=== PATIENT | male | born 1960 | race Caucasian/White ===

== ENCOUNTER → 2023-09-04 | Outpatient (CLI) | payer MEDICARE ==
[2023-09-04 15:16] VITALS: BP 123/81; PULSE 105; RESP 16; TEMP 98.4
--- NOTE | 2023-09-04 16:44 | P.SLEEP ---
History of Present Illness DATE: 09/04/2023 CONSULTATION/NEW PATIENT EVALUATION HISTORY OF PRESENT ILLNESS/SLEEP-WAKE EVALUATION: 62-year-old gentleman had b een evaluated in the sleep center for possible obstructive sleep apnea hypopnea syndrome. SLEEP SCHEDULE: Patient usually sleeps only about 4 hours per night, does not have regular sleep schedule. FALLING ASLEEP: Patient does have difficulties with falling asleep, has TV set in bedroom. DURING SLEEP: Patient has very loud snoring and witnessed episodes of stop breathing during the sleep. Patient wakes up from sleep several times with episodes of nocturia. Positive history of heartburn, episodes of gasping for air, sweating and sleep talking. No history of hypnogogical hallucinations, sle ep paralysis, or cataplexy. DURING THE DAY/WAKE STATE: In the morning patient wake up tired, falling asleep during the day, has problems with memory, concentration, depression and anxiety. Gird[place]ree sleepiness scale is extremely high 20. PAST MEDICAL HISTORY: Episode of atrial flutter, COPD, hypertension, hyperlipidemia. PAST SURGICAL HISTORY: Surgical treatment for diverticulitis, cardiac ablation recently for atrial flutter. MEDICATIONS: Losartan 50 mg twice a day, Eliquis 5 mg once a day, fenofibrate 160 mg once a day, metoprolol 25 mg once a day, oxycodone up to 3 times a day, gabapentin twice a day, methocarbamol 750 mg every 8 hours, Spiriva 2.5 mg 2 inhalation during the day, atorvastatin 40 mg once a day. SOCIAL HISTORY: Positive history of smoking for 35 pack years, quit several days ago, alcohol consumption occasional. FAMILY HISTORY: Hypertension, heart problems, sleep apnea, asthma, stroke. REVIEW OF SYSTEMS: Loud snoring, witnessed episodes of stop breathing during sleep, sleepiness during the day. No fevers. No double vision. No recent chest pain. No shortness of breath. No abdominal pain. No bleeding episodes. No blood in urine. No seizure episodes. PHYSICAL EXAMINATION: GENERAL: A pleasant patient without any distress. VITAL SIGNS: 123/81, HR 105, RR 16, weight 213 pounds, height 5 feet and 7-1/2 inches, temperature 98.4, oxygen saturation room air 92%, body mass index 32.8. HEENT: PERRLA, EOMI. Evaluation of oropharynx showed tongue protrudes midline, low position of soft palate Mallampati 4. NECK: Supple. No JVD. Thyroid is not palpable. 19 inches in circumference. LUNGS: Clear to percussion and to auscultation. Good air exchange. No wheezing or rhonchi. HEART: S1, S2 regular. No murmurs, gallops or rubs. ABDOMEN: Soft and nontender. Bowel sounds are present. No organomegaly appreciated. EXTREMITIES: No clubbing or cyanosis. EAP SPECIALIST: Awake, alert, and oriented x3. Cranial nerves 2 to 7 intact. There is no fasciculation or atrophy noted. No focal deficits observed. ASSESSMENT: 1. Loud snoring, witnessed episodes of stop breathing during sleep, awakenings from sleep with gasping for air, extremely low position of soft palate Mallampati 4, wide neck 19 inches in circumference, sleepiness with Gird[place]ree Sleepiness Scale is 20. Obstructive sleep apnea hypopnea syndrome. 2. Recent episode of atrial flutter, status post cardiac ablation. 3. COPD. History of smoking for 35 pack years, quit several days ago. 4. Hypertension. 5 hyperlipidemia. 6 . Obesity, BMI 32.8. 7. Status post surgical treatment for diverticulitis. PLAN: 1. Polysomnography for evaluation of patient's breathing during sleep. 2. CPAP/BiPAP titration if sleep study confirms obstructive sleep apnea- hypopnea syndrome. 3. Preferable position during sleep on the side. 4. No driving if patient feels any sleepiness. Patient is aware of civil and criminal liability for unsafe driving. 5. Sleep hygiene with regular sleep time for at least 7.5-8 hours. 6. Watching and losing weight. Thank you very much for referring this patient for consultation. Sincerely, Erasmo Rosenberg MD, PhD, FAASM. Diplomat of [place] [employer], Sleep Medicine Board by [place] [employer] [employer] Mule Operator of [facility] Medications and Allergies Home Medications Medication Instructions Recorded Confirmed Type Albuterol Nebulized [Ventolin 2.5 mg INHALATION Q4H 09/04/23 09/04/23 History Nebulized] Apixaban [Eliquis] 5 mg PO BID 09/04/23 09/04/23 History Ascorbic Acid [Vitamin C] 2 09/04/23 History Atorvastatin [Lipitor] 1 tab-cap PO ONCE 09/04/23 09/04/23 History Cyanocobalamin [Vitamin B-12] PO 09/04/23 History Fenofibrate [Lofibra] 160 mg PO ONCE 09/04/23 09/04/23 History Fluticasone/Vilanterol [Breo 1 each IH DAILY 09/04/23 09/04/23 History Ellipta 100-25 Mcg Inhalr] Gabapentin [Neurontin] 300 mg PO QID MDD dose not given 09/04/23 09/04/23 History L.acidoph,Paracasei, B.lactis 1 each PO 09/04/23 History [Probiotic] Losartan Potassium 50 mg PO BID 09/04/23 09/04/23 History Metoprolol Tartrate 25 mg PO BID 09/04/23 09/04/23 History Milk Thistle mg PO 09/04/23 History Tiotropium 18 Mcg/Puff [Spiriva] 2 puff INHALATION 09/04/23 History Ubidecarenone [Co Q-10] mg PO 09/04/23 History Vitamin B Complex 1 each PO 09/04/23 History Vitamin D3/Vitamin K2 (Mk4) 1 each PO 09/04/23 History [Vitamin K2 Plus D3 Tablet] Zinc Gluconate [Zinc] mg PO DAILY 09/04/23 History methocarbamoL 750 mg PO Q8HR 09/04/23 09/04/23 History oxyCODONE-APAP 10-325MG [Percocet 2 tab PO Q8HR PRN 09/04/23 09/04/23 History 10-325 mg] predniSONE [Deltasone] 2 PO 09/04/23 History Sleep Note - Sleep Note Sleep Note: Temperature: Pulse Rate: Respiratory Rate: Blood Pressure: SpO2: Height: Weight: BMI: Neck Circumference:
== END ==
LOC: 3 N SLEEP 13:57
PROVIDERS: ATTEND Internal Medicine
DX: G47.33 Obstructive sleep apnea (adult) (pediatric) (principal); I48.92 Unspecified atrial flutter; J44.9 Chronic obstructive pulmonary disease, unspecified; I10 Essential (primary) hypertension; E78.5 Hyperlipidemia, unspecified; E66.9 Obesity, unspecified; Z68.32 Body mass index [BMI] 32.0-32.9, adult; Z98.890 Other specified postprocedural states; Z87.891 Personal history of nicotine dependence; Z79.899 Other long term (current) drug therapy; Z79.01 Long term (current) use of anticoagulants
CPT/HCPCS: 99211

== ENCOUNTER 2023-09-08 19:30 | Outpatient (CLI) | payer MEDICARE ==
--- NOTE | 2023-09-11 11:08 | P.PCN ---
Description of Procedure: POLYSOMNOGRAPHY REPORT PROCEDURE(S)/DATE(S): Polysomnography 09/08/2023 CLINICAL: Patient has been seen in the sleep center for evaluation of obstructive sleep apnea-hypopnea syndrome. Please see my consultation. Sleep study has been done for evaluation of patient breathing during the sleep. PROCEDURE: The standard montage for clinical polysomnography included the electroencephalogram, the electrooculogram, the mentalis surface electromyography and Lead II cardiography. The respiratory battery consisted of measurements of nasal/buccal air flow, pressure transducer measurements from nose, thoracic and/or abdominal effort and intercostal surface electromyography. Video monitoring has been done to check for any parasomnia events. Nocturnal oxyhemoglobin saturations were obtained by finger oximetry. Step-aguilar titration with positive airway pressure was utilized to control the respiratory events, if necessary. RESULTS: During the diagnostic sleep study sleep efficiency was close to normal age of 6.3%. Latency to sleep onset was normal 11.5 min. Sleep architecture s howed stage NI was normal 6.0%, Delta sleep was normal at 13.8%, REM sleep was high 32.9%. Respiratory channel showed 8 obstructive apneas, 0 mixed apneas, 5 central apneas, 54 hypopneas with lowest oxygen level 67%. Total oxygen level was below normal for 3 hours 52 minutes and 16 seconds. Total apnea hypopnea index was 10.3. Heart rate was in the range between 79 and 88, average 83. EMG showed 0 periodic limb movements per hour. IMPRESSIONS: 1. Obstructive sleep apnea hypopnea syndrome with long and severe oxygen desaturation. 2. No significant periodic limb movements have been documented. Please see other impressions from consultation PLAN: 1. The patient will have PAP titration for correction of respiratory abnormalities during the sleep. 2. Losing weight program. 3. Sleep hygiene with regular time in bed for at least 7-1/2 hours. 4. No driving if feeling sleepiness. Thank you very much for allowing me to participate in the management of your patient. Sincerely, Erasmo Rosenberg MD, PhD, FAASM. Diplomat of [employer], Sleep Medicine Board by [employer] Inspector And Clerk of [facility] [place]
== END 2023-09-09 06:00 | disposition home or self-care (01) ==
LOC: 3 N SLEEP 19:30
PROVIDERS: ATTEND Internal Medicine
DX: G47.33 Obstructive sleep apnea (adult) (pediatric) (principal); G47.36 Sleep related hypoventilation in conditions classified elsewhere
CPT/HCPCS: 95810

== ENCOUNTER → 2023-09-17 | Outpatient (CLI) | payer MEDICARE ==
[2023-09-17 14:39] VITALS: BP 120/78; PULSE 89; RESP 16; TEMP 98.2
--- NOTE | 2023-09-17 15:28 | P.PN ---
Subjective DATE: 09/17/2023 FOLLOW UP VISIT. Patient returned to sleep center for follow-up visit to discuss results of the sleep study and following plan. Sleep study showed apnea-hypopnea index 10.3, but oxygen level was below normal for 3 hours and 52 minutes with lowest oxygen level 67% patient has CPAP unit which was donated to him, he tried to use it but was not able to use it secondary to not sufficient pressure when he is starting to use it. I checked CPAP unit its AutoPap with a range of the pressure 8-14 with Autoramp starting from 5 cm of water. I adjusted CPAP unit [id number] for patient comfort and with the pressure 10 to 15 cm of water patient feel comfortable. . Blair sleepiness scale is 20 today. MEDICATIONS:1. Losartan 50 mg twice a day 2. Eliquis 5 mg once a day 3. Fenofibrate 160 mg once a day 4. Metoprolol 25 mg once a day 5. Gabapentin twice a day 6. Spiriva 7. Methocarbamol 8. Atorvastatin 40 mg once a day During physical exam: GENERAL: A pleasant patient without any distress. VITAL SIGNS: Please see below. HEENT: PERRLA, EOMI. NECK: Supple. No JVD. LUNGS: Clear to percussion and to auscultation. Good air exchange. No wheezing or rhonchi. HEART: S1, S2 regular. ABDOMEN: Soft and nontender. EXTREMITIES: No clubbing or cyanosis. MARINE FITTER: Awake, alert, and oriented x3. No focal deficit. Impressions: 1. Obstructive sleep apnea hypopnea syndrome with apnea-hypopnea index 10.3. 2. Significant and long oxygen desaturation during sleep secondary to sleep apnea and COPD for 3 hours and 52 minutes with lowest oxygen level 67%. 3. History of smoking for 35 pack years. 4. History of recent episodes of atrial flutter, status post cardiac ablation. 5. Hypertension. 6. Hyperlipidemia. 7. Obesity. 8. Status post surgical treatment for diverticulitis. Plan: 1. Patient will start using AutoPap with a range of the pressure to 10 to 15 cm of water. CPAP unit was donated to the patient by his friend. 2. CPAP, if necessary BiPAP titration, if necessary with added oxygen. 3. Sleep hygiene with regular time in bed for at least 8 hours. 4. Precautions related to driving. No driving if feel any sleepiness. Patient is aware about civil and criminal liability for unsafe driving, promised to follow recommendations. 5. Following plan after reading titration study. Thank you very much for allowing me to participate in the management of your patient. Erasmo Rosenberg MD, PhD, FAASM. Diplomat of [place] [employer], Sleep Medicine Board by [place] [employer] Hospital Receiving Clerk of [facility] [place] Objective - Vital Signs Vital signs: Vital Signs Temp 98.2 F 09/17/23 14:00 Pulse 89 09/17/23 14:00 Resp 16 09/17/23 14:00 BP 120/78 09/17/23 14:00 Pulse Ox 94 L 09/17/23 14:00 FiO2 Intake & Output 09/16/23 09/17/23 09/17/23 18:59 06:59 18:59 Weight 96.615 kg
== END ==
LOC: 3 N SLEEP 13:51
PROVIDERS: ATTEND Internal Medicine
DX: G47.33 Obstructive sleep apnea (adult) (pediatric) (principal); G47.36 Sleep related hypoventilation in conditions classified elsewhere; I10 Essential (primary) hypertension; E78.5 Hyperlipidemia, unspecified; E66.9 Obesity, unspecified; J44.9 Chronic obstructive pulmonary disease, unspecified; Z87.891 Personal history of nicotine dependence; Z86.79 Personal history of other diseases of the circulatory system; Z79.01 Long term (current) use of anticoagulants; Z79.899 Other long term (current) drug therapy; Z87.19 Personal history of other diseases of the digestive system; Z68.32 Body mass index [BMI] 32.0-32.9, adult
CPT/HCPCS: 99212

== ENCOUNTER 2023-09-28 19:36 | Outpatient (CLI) | payer MEDICARE ==
--- NOTE | 2023-10-01 12:04 | P.PCN ---
Description of Procedure: CLINICAL: Titration with positive air pressure has been done for correction of respiratory abnormalities during sleep. DESCRIPTION OF PROCEDURE: The standard montage for clinical polysomnography included the electroencephalogram, the electrocardiogram, the mentalis surface electromyography and Lead II cardiography. The respiratory battery consisted of measurements of nasal /buccal air flow, pressure transducer measurements from the nose, thoracic and /or abdominal effort and intercostal surface electromyography. Video monitoring has been done to check for any parasomnia events. Nocturnal oxyhemoglobin saturations were obtained by finger oximetry. Step-aguilar titration with positive airway pressure was utilized to control respiratory events. Raw data of sleep recording has been reviewed and is adequate. RESULTS: Sleep efficiency was significantly was normal at 90.2%. Latency to sleep onset was normal at 12.5 minutes.]. Sleep architecture showed stage N1 was extremely short 0.9%, Delta sleep was normal 6.3%, REM sleep was normal 21.7%. Heart rate was minimum 73 BPM, maximum 94 BPM, average 84 BPM. EMG showed 6.8 periodic limb movements per hour with 0.5 micriarousals per hour. PAP titration have been done with CPAP up to the pressure 18 cm H2O. oxygen was added and titrated up to the 3 L/min during the test. The best results were at the pressure 18 cm H2O. Apnea hypopnea index reduced to 0, patient was on 3 L/min oxygen supplement at that time and lowest oxygen level was 94%. IMPRESSION: 1. Obstructive sleep apnea hypopnea syndrome on controle with PAP treatment with oxygen supplement 3 L/min. 2. COPD. 3. No significant periodic limb movements have been documented. Please see other impressions from consultation. PLAN: 1. The patient will have treatment with positive air pressure equipment with the level of pressure AutoPap 8-18 cm H2O with oxygen supplement 3 L/min and should use it every night for the whole night. 2. Watching and losing weight. 3. Sleep hygiene with regular time in bed for at least 8 hours. 4. No driving if feeling any sleepiness. 5. I will see the patient for follow up visit to explain the results of the test, recommendations, check compliance with treatment and make any necessary adjustment related to mask fitting, pressure and humidification. Thank you very much for allowing me to participate in the management of your patient. Sincerely, Erasmo Rosenberg MD, PhD, FAASM Diplomat of [employer] [employer] Sleep Medicine Board of [place] [employer] English As A Second Language Instructor of [facility] [place] cc: Leatha Christensen MD
== END 2023-09-29 06:00 | disposition home or self-care (01) ==
LOC: 3 N SLEEP 19:36
PROVIDERS: ATTEND Internal Medicine
DX: G47.33 Obstructive sleep apnea (adult) (pediatric) (principal); G47.36 Sleep related hypoventilation in conditions classified elsewhere; J44.9 Chronic obstructive pulmonary disease, unspecified
CPT/HCPCS: 95811

== ENCOUNTER → 2024-07-27 | Outpatient (CLI) | payer MEDICARE, SELFPAY ==
[2024-07-27 13:25] VITALS: BP 154/83; PULSE 71; RESP 16
--- NOTE | 2024-07-27 15:53 | P.PAINPG ---
Objective - Vital Signs Vital signs: Intake & Output 07/26/24 07/27/24 07/27/24 18:59 06:59 18:59 Weight 101.151 kg PQRS Measure Charge Sheet Comment: HISTORY OF PRESENT ILLNESS: A 63 yr old male w female train inspector at side as a referral from Dr Christensen presents today w severe and chronic groin pain secondary to Iliostomy for evaluation. Pt states pain level is provoked at 10 /10 in intensity, constant, localized in the lower abdomen, sharp in character w occasional shooting pain towards the groin/ testicle. Pain is provoked by standing/ walking/ bending, use of a TENS unit causes skin flare-ups. Pain is alleviated by PT x 6 wks which ended in 2019, physician guided home stretches every other day since 2019, medications, Cannabis, topical, repositioning and rest . PMH: OA, aFlutter, COPD, HTN, Hyperlipidemia, GERD, SHARMAINE PSH: Iliostomy (2018) , Cardiac Ablation , JAMMIE (2022), SH: 35 pack/ yr tobacco use, Occ ETOH use, Cannabis use FH: CAD, SHARMAINE, CVA All: See list Meds: See list icl Oxycodone #90, Neurontin #60, Robaxin 750mg #90, Ibu, Cannabis, CBD Oil, Eliquis REVIEW OF ORGAN SYSTEMS: CONSTITUTIONAL: No fevers or chills. No recent weight loss. NEUROLOGICAL: + numbness and tingling along the distal extremities. No seizure disorders or headaches. MUSCULOSKELETAL: + pain PSYCHIATRIC: Denies current depression or suicidal thoughts. Physical Examinations : Constitutional : Cooperative , not in acute distress . Neurologic : Cranial nerve II to XII intact. No focal neurological deficits. Psychiatric : alert & oriented x 3. Matching mood & appropriate affect. Judgment & insight intact. Musculoskeletal : Cervical Spine Motor strength in the deltoid and bi ceps: Normal right side. Normal Left side Motor strength biceps and the wrist extensors: Normal right side . Normal left side Motor strength in the triceps muscle: Normal right side. Normal left side Deep tendon reflexes: Normal at the biceps. Normal at Brachioradialis. Normal at triceps Vertebral body tenderness to deep palpation over Cervical facet loading test: positive bilaterally Spurling test: positive bilaterally Neck distraction test: positive bilaterally Megan sign: positive bilaterally Thoracic spine Taut bands w twitch response over L C6- T6 Lumbar spine Motor strength lower extremities ,thigh and legs 5/5 Right side , 5/5 Left side Deep tendon reflexes : Normal Knee Jerk. Normal Ankle Jerk Vertebral body tenderness over Bass Test positive Lumbar facet Loading Test: positive Right / positive Left Range of motion of the lumbar spine Flexion 30 degrees, extension 10 degrees Straight Leg Raise test: Left/ Right positive at degrees Charmaine test: positive right / positive left. Severe tenderness over the Sacroiliac joint on the Right / Left sides Gaenslen test: positive bilaterally Seated flexion test: positive bilaterally. 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 ACACIA form sent to [facility] but no records provided. All questions answered. I have spent greater than 30 minutes on patient care today. Dr Juarez was available by phone for the evaluation of this patient. The time was used to review the medical records including relevant urine studies and Prescription history (MAPs), review of the available imaging, evaluation and examination of the patient, coordination of care with the medical staff and if applicable referring physicians, as well as creation of the medical record Home Medications: Ambulatory Orders Albuterol Nebulized [Ventolin Nebulized] 2.5 mg INHALATION Q4H 09/04/23 Apixaban [Eliquis] 5 mg PO BID 09/04/23 Ascorbic Acid [Vitamin C] 2 09/04/23 Atorvastatin [Lipitor] 1 tab-cap PO ONCE 09/04/23 Cyanocobalamin [Vitamin B-12] PO 09/04/23 Fenofibrate [Lofibra] 160 mg PO ONCE 09/04/23 Fluticasone/Vilanterol [Breo Ellipta 100-25 Mcg Inhalr] 1 each IH DAILY 09/04/23 Gabapentin [Neurontin] 300 mg PO QID MDD dose not given 09/04/23 L.acidoph,Paracasei, B.lactis [Probiotic] 1 each PO 09/04/23 Losartan Potassium 50 mg PO BID 09/04/23 Metoprolol Tartrate 25 mg PO BID 09/04/23 Milk Thistle mg PO 09/04/23 Tiotropium 18 Mcg/Puff [Spiriva] 2 puff INHALATION 09/04/23 Ubidecarenone [Co Q-10] mg PO 09/04/23 Vitamin B Complex 1 each PO 09/04/23 Vitamin D3/Vitamin K2 (Mk4) [Vitamin K2 Plus D3 Tablet] 1 each PO 09/04/23 Zinc Gluconate [Zinc] mg PO DAILY 09/04/23 methocarbamoL 750 mg PO Q8HR 09/04/23 oxyCODONE-APAP 10-325MG [Percocet 10-325 mg] 2 tab PO Q8HR PRN 09/04/23 predniSONE [Deltasone] 2 PO 09/04/23 Controlled Substance Measures - Controlled Substance Measures Is patient prescribed a controlled substance at discharge?: No
== END ==
LOC: PNWHC3 12:36
PROVIDERS: ATTEND Specialist
DX: M54.16 Radiculopathy, lumbar region (principal); Z93.2 Ileostomy status; Z91.040 Latex allergy status
CPT/HCPCS: 99211

== ENCOUNTER → 2024-07-27 | Outpatient (CLI) | payer MEDICARE, SELFPAY ==
--- NOTE | 2024-07-27 15:25 | XR ---
EXAMINATION TYPE: XR lumbar spine 2 or 3V DATE OF EXAM: 07/27/2024 3:10 PM COMPARISON: None CLINICAL INDICATION: Male, 63 years old with history of M54.16; PHH, pain TECHNIQUE: XR lumbar spine 2 or 3V - Frontal, lateral and coned in L5-S1 lateral views of the spine. FINDINGS: No evidence of any acute osseous pathology. No evidence of loss of vertebral body height i s seen. There is normal alignment of the lumbar vertebral bodies. Scattered disc space narrowing. Mul tilevel marginal osteophyte formation throughout the visualized spine. There is facet joint arthropat hy throughout the spine. Scattered at least mild neural foraminal stenosis. More severe degeneration at L2-L3 with complete loss of disc height osteophytes present. Atherosclerosis of the arterial vascu lature. IMPRESSION: 1. No acute fracture. 2. Mild moderate to severe L2-L3 disc degeneration with more mild to moderate at the remainder of the spine. [facility], , 07/27/2024 3:22 PM
== END | disposition home or self-care (01) ==
LOC: RADXRMAIN 14:54
PROVIDERS: ATTEND Anesthesiology
DX: M48.061 Spinal stenosis, lumbar region without neurogenic claudication (principal); M47.26 Other spondylosis with radiculopathy, lumbar region; M25.78 Osteophyte, vertebrae
CPT/HCPCS: 72100

== ENCOUNTER → 2024-09-15 | Outpatient (CLI) | payer MEDICARE, SELFPAY ==
[2024-09-15 10:28] VITALS: BP 149/76; PULSE 63; RESP 16; TEMP 97.1
--- NOTE | 2024-09-15 14:58 | P.PAINPG ---
PQRS Measure Charge Sheet Comment: HISTORY OF PRESENT ILLNESS: A 63 yr old male w female staff cytotechnologist at side presents today w severe and chronic groin pain secondary to Iliostomy for evaluation. Pt states pain level is provoked at 10 /10 in intensity, constant, localized in the lower abdomen, sharp in character w occasional shooting pain towards the groin/ testicle. Pain is provoked by standing/ walking/ bending, use of a TENS unit causes skin flare- ups. Pain is alleviated by PT x 6 wks (cerv, lumb, L shoulder) which ended in 2019, chiropractic treatments monthly since 2018 which he is currently in, physician guided home stretches every other day since 2019, medications, Cannabis, topical, repositioning and rest . Interventional procedures include VICKIE C6-C7 x1 (2022), L1-L2 VICKIE x3 (2022) Medications include Oxycodone #90, Neurontin #60, Robaxin 750mg #90, Ibu, Cannabis, CBD Oil, Eliquis REVIEW OF ORGAN SYSTEMS: CONSTITUTIONAL: No fevers or chills. No recent weight loss. NEUROLOGICAL: + numbness and tingling along the distal extremities. No seizure disorders or headaches. MUSCULOSKELETAL: + pain PSYCHIATRIC: Denies current depression or suicidal thoughts. Physical Examinations : Constitutional : Cooperative , not in acute distress . Neurologic : Cranial nerve II to XII intact. No focal neurological deficits. Psychiatric : alert & oriented x 3. Matching mood & appropriate affect. Judgment & insight intact. Musculoskeletal : Cervical Spine Motor strength in the deltoid and biceps: Normal right side. Normal Left side Motor strength biceps and the wrist extensors: Normal right side . Normal left side Motor strength in the triceps muscle: Normal right side. Normal left side Deep tendon reflexes: Normal at the biceps. Normal at Brachioradialis. Normal at triceps Vertebral body tenderness to deep palpation over Cervical facet loading test: positive bilaterally Spurling test: positive bilaterally Neck distraction test: positive bilaterally Megan sign: positive bilaterally Thoracic spine Taut bands w twitch response over L C6- T6 Lumbar spine Motor strength lower extremities ,thigh and legs 5/5 Right side , 5/5 Left side Deep tendon reflexes : Normal Knee Jerk. Normal Ankle Jerk Vertebral body tenderness over L5 Bass Test positive L5-S1 Lumbar facet Loading Test: positive Right / positive Left Range of motion of the lumbar spine Flexion 30 degrees, extension 10 degrees Straight Leg Raise test: Left/ Right positive at degrees Charmaine test: positive right / positive left. Severe tenderness over the Sacroiliac joint on the Right / Left sides Gaenslen test: positive bilaterally Seated flexion test: positive bilaterally. 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 Risks, benefits of procedure discussed and patient verbalized understanding. Protocol for discontinuation/continuation of medication surrounding procedure discussed. All questions answered. I have spent greater than 30 minutes on patient care today. Dr Juarez was available by phone for the evaluation of this patient. The time was used to review the medical records including relevant urine studies and Prescription history (MAPs), review of the available imaging, evaluation and examination of the patient, coordination of care with the medical staff and if applicable referring physicians, as well as creation of the medical record PQRS Narrative: Hx Alcohol Use (MH) Yes Home Medications: Ambulatory Orders Albuterol Nebulized [Ventolin Nebulized] 2.5 mg INHALATION Q4H 09/04/23 Apixaban [Eliquis] 5 mg PO BID 09/04/23 Ascorbic Acid [Vitamin C] 2 09/04/23 Atorvastatin [Lipitor] 1 tab-cap PO ONCE 09/04/23 Cyanocobalamin [Vitamin B-12] PO 09/04/23 Fenofibrate [Lofibra] 160 mg PO ONCE 09/04/23 Fluticasone/Vilanterol [Breo Ellipta 100-25 Mcg Inhalr] 1 each IH DAILY 09/04/23 Gabapentin [Neurontin] 300 mg PO QID MDD dose not given 09/04/23 L.acidoph,Paracasei, B.lactis [Probiotic] 1 each PO 09/04/23 Losartan Potassium 50 mg PO BID 09/04/23 Metoprolol Tartrate 25 mg PO BID 09/04/23 Milk Thistle mg PO 09/04/23 Tiotropium 18 Mcg/Puff [Spiriva] 2 puff INHALATION 09/04/23 Ubidecarenone [Co Q-10] mg PO 09/04/23 Vitamin B Complex 1 each PO 09/04/23 Vitamin D3/Vitamin K2 (Mk4) [Vitamin K2 Plus D3 Tablet] 1 each PO 09/04/23 Zinc Gluconate [Zinc] mg PO DAILY 09/04/23 methocarbamoL 750 mg PO Q8HR 09/04/23 oxyCODONE-APAP 10-325MG [Percocet 10-325 mg] 2 tab PO Q8HR PRN 09/04/23 predniSONE [Deltasone] 2 PO 09/04/23 Controlled Substance Measures - Controlled Substance Measures Is patient prescribed a controlled substance at discharge?: No
== END ==
LOC: PNWHC3 09:52
PROVIDERS: ATTEND Specialist
DX: M54.16 Radiculopathy, lumbar region (principal); Z91.040 Latex allergy status
CPT/HCPCS: 99211

== ENCOUNTER 2024-12-07 07:30 | Day surgery (SDC) | payer MEDICARE, SELFPAY ==
[2024-12-07 07:53] VITALS: RESP 16; TEMP 97.1
[2024-12-07] MEDS: IV FLUID CONTINUATION 1,000 ML IV ONE ×2 (08:27→08:58)
[2024-12-07] MEDS: LACTATED RINGERS 1,000 ML IV SCH (08:31)
[2024-12-07] MEDS ORDERED: methylPREDNISolone ACETATE 80 MG/ML 1 ML VIAL ONE (08:37)
[2024-12-07] MEDS ORDERED: IOPAMIDOL M300 15ML VIAL ONE (08:37)
[2024-12-07] MEDS ORDERED: MIDAZOLAM 2 MG/2 ML VIAL ONE (08:37)
--- NOTE | 2024-12-07 09:05 | P.PCN ---
Description of Procedure: PREOPERATIVE DIAGNOSIS: 1- Lumbar Degenerative Disc Diseases 2-Lumbar spondylosis with Facet arthropathy without myelopathy. 3-lumbar spinal stenosis POSTOPERATIVE DIAGNOSIS: 1-lumbar degenerative disc disease. 2-lumbar spondylosis with facet arthropathy without myelopathy. 3-lumbar spinal stenosis. PROCEDURE Injection of radio contrast material into L5-S1 interspace, interpretation of epidurogram, injection of steroid at L5-S1 epidural space under fluoroscopic guidance. ANESTHESIA: Lidocaine 1% subcutaneously. In OR continuous pulse ox, EKG, blood pressure and verbal communication was maintained with the patient. IV sedation with Versed 3 mg IV. Start time 837. End time 846. Patient is extremely nervous and jittery. Continuously shakes his leg and body. Patient is unable to stay still for the procedures. In the past patient had to have medication to relax him for procedures. That is why decided to start IV and give relaxing medication. EBL: Minimal PROCEDURE INDICATION: Before the procedure were discussed with the patient detailed procedure, alternatives, complications including infection, bleeding, nerve damage, paralysis all of which could be permanent. Patient understands and all questions were answered. Patient has significant pain and tenderness in the scapular area of the shoulder. For that in the past patient had trigger point injection with good results. Will try to arrange for scapular area trigger point injection for shoulder pain before he is next lumbar epidural steroid injection if possible. PROCEDURE DESCRIPTION : After getting consent, patient in OR in prone position. Back was prepped with chlorhexidine and draped in sterile fashion. After injecting 10 mL of 1% li docaine subcutaneously, a 20-gauge Tuohy needle was introduced at L5-S1 interspace with loss of resistance technique using a syringe filled with air. Negative CSF, negative blood, negative paresthesia. Needle position was confirmed with AP and lateral view of the fluoroscope. After repeat negative aspiration 2 mL of Omnipaque 200 water soluble contrast was injected. Contrast was noted in the epidural space. No contrast was noted into intrathecal or intravascular space. After repeat negative aspiration 6 mL solution was injected intermittently which consists of 5 mL of preservative-free normal saline mixed with 1 mL of 80 mg Depo-Medrol. Needle was withdrawn intact. Skin was cleansed and Band-Aids was applied. DISPOSITION / PLANS: The patient tolerated the procedure well. No complication. The patient was placed in a supine position and transferred to the recovery area in a stable condition for observation. There was no evidence of lower extremity motor or sensory deficit after the procedure. Patient was discharged from the recovery room after meeting discharge criteria. Home discharge instructions were given to the patient by the staff. The patient was reexamined prior to discharge. The patient will schedule a follow up in the clinic in 2-4 weeks.
[2024-12-07 09:17] VITALS: BP 121/88; PULSE 88
--- NOTE | 2024-12-07 09:39 | FL ---
EXAMINATION TYPE: FL guided pain mgmt statistic DATE OF EXAM: 12/07/2024 8:51 AM COMPARISON: Pre Operative Images if available both CT/MRI or plain film CLINICAL INDICATION: Male, 63 years old with history of LESI; TECHNIQUE: FL guided pain mgmt statistic, multiple fluoroscopic images provided for procedure. DAP: 0.41134 mGym2 Gycm2 uGym2 cGycm2 or equivalent. FINDINGS: Fluoroscopic images during injection for pain management demonstrate multilevel degeneration changes throughout the spine. No evidence for fracture. No acute process identified. IMPRESSION: 1. No evidence for intraoperative complication. 2. Please see the operative/procedural note for further details. [facility], , 12/07/2024 9:37 AM
== END 2024-12-07 09:26 | disposition home or self-care (01) ==
LOC: ORPAIN 07:30
PROVIDERS: ATTEND Pain Medicine Interventional Pain Medicine
DX: M51.369 Other intervertebral disc degeneration, lumbar region without mention of lumbar back pain or lower extremity pain (principal); M47.816 Spondylosis without myelopathy or radiculopathy, lumbar region; M48.061 Spinal stenosis, lumbar region without neurogenic claudication
CPT/HCPCS: 62323; J2250; Q9967; J1010

== ENCOUNTER → 2024-12-15 | Outpatient (CLI) | payer MEDICARE, SELFPAY ==
[2024-12-15 16:28] VITALS: BP 113/70; PULSE 82; RESP 16; TEMP 97.3
--- NOTE | 2024-12-15 18:34 | P.PROGSL ---
Subjective DATE: 12/15/2024 FOLLOW UP VISIT. Patient with obstructive sleep apnea hypopnea syndrome return to sleep center for follow-up visit. Information from previous visit have been reviewed. Patient is using PAP equipment every night for the whole night with oxygen supplement up to 5 L/min, getting PAP supplies in time. The patient does not have significant problems with the mask, PAP unit and humidification. [place] sleepiness scale is slightly increased to 11. I checked information from PAP unit. PAP unit pressure 8-18, average 9.6 cm H2O. Usage is 100% for more then 4 hours, average 7.6 hours per night. Leak is significantly increased to 74 l/m. Apnea Hypopnea Index is 3.7, which is normal. MEDICATIONS have been reviewed, please see below. During physical exam: GENERAL: A pleasant patient without any distress. VITAL SIGNS: Please see below, weight is 218.4 lbs. HEENT: PERRLA, EOMI.low position of soft palate. NECK: Supple. No JVD. LUNGS: Clear to percussion and to auscultation. Good air exchange. No wheezing or rhonchi. HEART: S1, S2 regular. ABDOMEN: Soft and nontender.[] EXTREMITIES: No clubbing or cyanosis. LINOLEUM INSTALLER: Awake, alert, and oriented x3. No focal deficit. Impressions: 1. Obstructive sleep apnea-hypopnea syndrome. Patient demonstrated great compliance with treatment, benefiting from treatment. 2. COPD. 3. History of atrial flutter, status post cardiac ablation. 4. Hypertension. 5. Hyperlipidemia. 6. Obesity, BMI 34.1. 7. Status post surgical treatment for diverticulitis. Plan: 1. Continue using PAP equipment every night for the whole night. 2. Sleep hygiene with regular time in bed for at least 7.5-8 hours 3. PAP unit should stay lower then position of the head. 4. Advised patient to remove all remaining water from humidifier canister daily and make it dry after each usage. Refill canister with fresh distilled water before each usage. 5. Watching and losing weight. 6. Precautions related to driving. No driving if feel any sleepiness. 7. I will maintain prescription for PAP supplies including mask, tube, filters. 8. Follow up visit in 8 months or earlier if patient has any problems. Thank you very much for allowing me to participate in the management of your patient. Erasmo Rosenberg MD, PhD, FAASM. Diplomat of [place] [employer], Sleep Medicine Board by [employer] [facility] [place] Objective - Vital Signs Vital Signs: Vital Signs Temp 97.3 F L 12/15/24 16:27 Pulse 82 12/15/24 16:27 Resp 16 12/15/24 16:27 BP 113/70 12/15/24 16:27 Pulse Ox 95 12/15/24 16:27 FiO2 Intake & Output 12/14/24 12/15/24 12/15/24 18:59 06:59 18:59 Weight 98.997 kg Home Medications: Home Medications Medication Instructions Recorded Confirmed Type Albuterol Nebulized [Ventolin 2.5 mg INHALATION TID PRN 09/04/23 12/07/24 History Nebulized] Apixaban [Eliquis] 5 mg PO BID 09/04/23 12/07/24 History Fenofibrate [Lofibra] 160 mg PO ONCE 09/04/23 12/07/24 History Fluticasone/Vilanterol [Breo 1 each IH DAILY 09/04/23 12/07/24 History Ellipta 100-25 Mcg Inhalr] Gabapentin [Neurontin] 300 mg PO BID PRN 09/04/23 12/03/24 History Losartan Potassium 50 mg PO QAM 09/04/23 12/03/24 History Metoprolol Tartrate 50 mg PO QAM 09/04/23 12/03/24 History methocarbamoL 750 mg PO Q8HR PRN 09/04/23 12/07/24 History oxyCODONE-APAP 10-325MG [Percocet 2 tab PO Q8HR PRN 09/04/23 12/03/24 History 10-325 mg] Nortriptyline HCl [Pamelor] 25 mg PO HS 12/03/24 12/07/24 History Rosuvastatin Calcium 20 mg PO HS 12/03/24 12/03/24 History icosapent ethyL [Icosapent Ethyl] 1 gm PO BID 12/03/24 12/07/24 History Ibuprofen [Motrin] 600 mg PO Q8HR PRN 12/07/24 12/07/24 History Omeprazole 20 mg PO ONCE 12/07/24 12/07/24 History
== END ==
LOC: 3 N SLEEP 15:48
PROVIDERS: ATTEND Internal Medicine
DX: G47.33 Obstructive sleep apnea (adult) (pediatric) (principal); J44.9 Chronic obstructive pulmonary disease, unspecified; I10 Essential (primary) hypertension; E78.5 Hyperlipidemia, unspecified; E66.9 Obesity, unspecified; Z99.89 Dependence on other enabling machines and devices; Z68.34 Body mass index [BMI] 34.0-34.9, adult; Z86.79 Personal history of other diseases of the circulatory system; Z98.890 Other specified postprocedural states; Z91.040 Latex allergy status
CPT/HCPCS: 99212

== ENCOUNTER → 2024-12-20 | Outpatient (CLI) | payer MEDICARE, SELFPAY ==
[2024-12-20 11:08] VITALS: BP 127/75; PULSE 67; RESP 16; TEMP 97.2
--- NOTE | 2024-12-20 15:50 | P.PAINPG ---
PQRS Measure Charge Sheet Comment: HISTORY OF PRESENT ILLNESS: A 64 yr old male w female bilingual patient support caseworker at side presents today w severe and chronic groin pain secondary to Iliostomy for evaluation s/p VICKIE L5-S1 #1. Pt states he experienced 50 % pain relief x 2 wks s/p procedure. Pt states pain level is provoked at 8 /10 in intensity, constant, localized in the L shoulder, sharp in character without shooting pain. Pain is provoked by lifting, use of a TENS unit causes skin flare-ups. Pain is alleviated by PT x 6 wks (cerv, lumbar, L shoulder) which ended in 2019, chiropractic treatments monthly since 2018 which he is currently in, physician guided home stretches every other day since 2019, medications, Cannabis, topical, repositioning and rest . Interventional procedures include VICKIE C6-C7 x1 (2022), L1-L2 VICKIE x3 (2022), VICKIE L5-S1 x1 (12/15) Medications include Oxycodone #90, Neurontin #60, Robaxin 750mg #90, Ibu, Cannabis, CBD Oil, Eliquis REVIEW OF ORGAN SYSTEMS: CONSTITUTIONAL: No fevers or chills. No recent weight loss. NEUROLOGICAL: + numbness and tingling along the distal extremities. No seizure disorders or headaches. MUSCULOSKELETAL: + pain PSYCHIATRIC: Denies current depression or suicidal thoughts. Physical Examinations : Constitutional : Cooperative , not in acute distress . Neurologic : Cranial nerve II to XII intact. No focal neurological deficits. Psychiatric : alert & oriented x 3. Matching mood & appropriate affect. Judgment & insight intact. Musculoskeletal : Cervical Spine +Taut bands w twitch response over L C3-T2 Motor strength in the deltoid and biceps: Normal right side. Normal Left side Motor strength biceps and the wrist extensors: Normal right side . Normal left side Motor strength in the triceps muscle: Normal right side. Normal left side Deep tendon reflexes: Normal at the biceps. Normal at Brachioradialis. Normal at triceps Vertebral body tenderness to deep palpation over Cervical facet loading test: positive bilaterally Spurling test: positive bilaterally Neck distraction test: positive bilaterally Megan sign: positive bilaterally Thoracic spine Taut bands w twitch response over L C6- T6 Lumbar spine Motor strength lower extremities ,thigh and legs 5/5 Right side , 5/5 Left side Deep tendon reflexes : Normal Knee Jerk. Normal Ankle Jerk Vertebral body tenderness over L5 Bass Test positive L5-S1 Lumbar facet Loading Test: positive Right / positive Left Range of motion of the lumbar spine Flexion 30 degrees, extension 10 degrees Straight Leg Raise test: Left/ Right positive at degrees Charmaine test: positive right / positive left. Severe tenderness over the Sacroiliac joint on the Right / Left sides Gaenslen test: positive bilaterally Seated flexion test: positive bilaterally. 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 Risks, benefits of procedure discussed and patient verbalized understanding. All questions answered. I have spent greater than 30 minutes on patient care today. Dr Juarez was available by phone for the evaluation of this patient. The time was used to review the medical records including relevant urine studies and Prescription history (MAPs), review of the available imaging, evaluation and examination of the patient, coordination of care with the medical staff and if applicable referring physicians, as well as creation of the medical record - Pain Location Left Shoulder Non-Pharmacological Interventions: Chiropractic Treatment, Home Exercise, Ice, Inactivity, Physical Therapy, Position/Reposition, Relaxation Technique, Sitting, Standing, Stretching Pharmacological Interventions: Block, PRN Medication, Scheduled Medication, Topical Medication PQRS Narrative: Hx Alcohol Use (MH) Yes Home Medications: Ambulatory Orders Albuterol Nebulized [Ventolin Nebulized] 2.5 mg INHALATION TID PRN 09/04/23 Apixaban [Eliquis] 5 mg PO BID 09/04/23 Fenofibrate [Lofibra] 160 mg PO ONCE 09/04/23 Fluticasone/Vilanterol [Breo Ellipta 100-25 Mcg Inhalr] 1 each IH DAILY 09/04/23 Gabapentin [Neurontin] 300 mg PO BID PRN 09/04/23 Losartan Potassium 50 mg PO QAM 09/04/23 Metoprolol Tartrate 50 mg PO QAM 09/04/23 methocarbamoL 750 mg PO Q8HR PRN 09/04/23 oxyCODONE-APAP 10-325MG [Percocet 10-325 mg] 2 tab PO Q8HR PRN 09/04/23 Nortriptyline HCl [Pamelor] 25 mg PO HS 12/03/24 Rosuvastatin Calcium 20 mg PO HS 12/03/24 icosapent ethyL [Icosapent Ethyl] 1 gm PO BID 12/03/24 Ibuprofen [Motrin] 600 mg PO Q8HR PRN 12/07/24 Omeprazole 20 mg PO ONCE 12/07/24 Controlled Substance Measures - Controlled Substance Measures Is patient prescribed a controlled substance at discharge?: No
== END ==
LOC: PNWHC3 10:07
PROVIDERS: ATTEND Specialist
DX: M79.18 Myalgia, other site (principal); M79.2 Neuralgia and neuritis, unspecified; Z98.890 Other specified postprocedural states; Z91.040 Latex allergy status
CPT/HCPCS: 99211

== ENCOUNTER 2024-12-31 08:18 | Day surgery (SDC) | payer MEDICARE, SELFPAY ==
[~2024-12-31 08:18] MED LIST: LACTATED RINGERS 1,000 ML IV SCH
[2024-12-31 08:51] VITALS: TEMP 97.9
[2024-12-31] MEDS ORDERED: ROPIVACAINE 5 MG/ML 30 ML VIAL ONE (09:40)
[2024-12-31] MEDS ORDERED: methylPREDNISolone ACETATE 40 MG/ML 1 ML VIAL ONE (09:40)
--- NOTE | 2024-12-31 10:10 | P.PCN ---
Description of Procedure: Preprocedure diagnosis. Myofascial pain. Myofascial trigger point. Postprocedure diagnosis. As above. Procedure done. Myofascial trigger point injection with local anesthetics and steroid at 3 points. Anesthesia. Ethyl chloride spray. Local anesthetic infiltration. In the OR continuous pulse ox, EKG, blood pressure, and verbal communication was maintained with the patient. Blood loss. None. Indication. Discussed with the patient procedure, alternatives and possible complications which may include infection, bleeding, nerve damage, aggravation of pain. Patient understands and all questions were answered. Procedure note. After getting consent patient in the procedure area. Most tender points were identified and marked. A 25-gauge needle attached to syringe was introduced at the trigger points and after negative aspiration 5 mL solution are injected at each trigger point. I injected 1 trigger points in right thoracic paraspinal muscles, 2 trigger points in right trapezius muscle lateral to the inner border of scapula. Total solution consists of 15 ml 0.5%Ropivacaine mixed with 40 mg Depomedrol. Disposition. Patient tolerated the procedure well. No complication. Discharged home in stable condition.
[2024-12-31 10:17] VITALS: BP 133/86; PULSE 75; RESP 18
== END 2024-12-31 10:25 | disposition home or self-care (01) ==
LOC: ORPAIN 08:18
PROVIDERS: ATTEND Pain Medicine Interventional Pain Medicine
DX: M79.18 Myalgia, other site (principal); I48.91 Unspecified atrial fibrillation; Z79.01 Long term (current) use of anticoagulants; Z79.1 Long term (current) use of non-steroidal anti-inflammatories (NSAID); Z91.040 Latex allergy status
CPT/HCPCS: 20553; J2795; J1010